=== PATIENT | female | born 1955 | race American Indian/Alaskan Native ===

== ENCOUNTER 2017-02-08 18:47 | Emergency (ER) | payer MEDICAID ==
[2017-02-08 20:07] VITALS: BP 149/80
== END 2017-02-08 20:20 | disposition left against medical advice (07) ==
LOC: ED 18:47
DX: R51 Headache (principal); M54.2 Cervicalgia; M54.5 Low back pain; Z53.21 Procedure and treatment not carried out due to patient leaving prior to being seen by health care provider